=== PATIENT | male | born 1995 | race Caucasian/White ===

== ENCOUNTER 2019-10-15 17:35 | Emergency (ER) | payer OTHER ==
[~2019-10-15] VITALS: Ht 180.3 cm; Wt 105.0 kg
--- NOTE | 2019-10-15 17:46 | PHYS DOC ---
Past History Past Medical History: Diabetes General Adult EDM: Chief Complaint: ANKLE PROBLEM HPI: HPI: " ,,, I was playing foot ball.. and stepped into a hole and twisted the Lt. ankle..." Patient is 23 year old male who presents with above hx and complaints of twis nilda ankle Lt. ankle. Patient distal neurovascular is equal to his right foot. Patient does have obvious edema of left malleolus particularly lateral. No upper leg tenderness. Foot squeeze is negative. Patient denies other injury in the fall. Patient has been ambulatory with a limp. Patient does have a history of diabetes but is well controlled. Patient denies any recent travel or specific ill contacts. Patient normally healthy with exception of his chronic diabetes. Review of Systems: Review of Systems: Constitutional: Denies fever or chills Eyes: Denies change in visual acuity HENT: Denies nasal congestion or sore throat Respiratory: Denies cough or shortness of breath Cardiovascular: Denies chest pain or edema GI: Denies abdominal pain, nausea, vomiting, bloody stools or diarrhea : Denies dysuria Musculoskeletal: Denies back pain or joint pain Except Lt ankle as per HPI Integument: Denies rash Neurologic: Denies headache, focal weakness or sensory changes Endocrine: Denies polyuria or polydipsia Lymphatic: Denies swollen glands Psychiatric: Denies depression or anxiety Heart Score: Risk Factors: Risk Factors: DM, Current or recent (<one month) smoker, HTN, HLP, family history of CAD, obesity. Risk Scores: Score 0 - 3: 2.5% MACE over next 6 weeks - Discharge Home Score 4 - 6: 20.3% MACE over next 6 weeks - Admit for Clinical Observation Score 7 - 10: 72.7% MACE over next 6 weeks - Early Invasive Strategies Family History: Family History: Noncontributory to presentation Current Medications: Current Meds: See nursing for home meds Allergies: Allergies: No known drug allergies Physical Exam: PE: Constitutional: Well developed, well nourished, mild distress, non-toxic appearance. [] HENT: Normocephalic, atraumatic, bilateral external ears normal, oropharynx moist, no oral exudates, nose normal. [] Eyes: PERRLA, EOMI, conjunctiva normal, no discharge. [] Neck: Normal range of motion, no tenderness, supple, no stridor. [] Cardiovascular:Heart rate regular rhythm, no murmur [] Lungs & Thorax: Bilateral breath sounds clear to auscultation [] Abdomen: Bowel sounds normal, soft, no tenderness, no masses, no pulsatile masses. [] Skin: Warm, dry, no erythema, no rash. [] Back: No tenderness, no CVA tenderness. [] Extremities: No tenderness, no cyanosis, no clubbing, ROM intact, no edema. [Except findings and left ankle as per HPI Neurologic: Alert and oriented X 3, normal motor function, normal sensory function, no focal deficits noted. [] Psychologic: Affect anxious l, judgement normal, mood normal. [] EKG: EKG: [] Radiology/Procedures: Radiology/Procedures: [][address] [address] IMAGING REPORT Signed PATIENT: MARY BARKER ACCOUNT: [id number] : 1995 LOCATION: ER AGE: 23 SEX: M EXAM STATUS: REG ER ORD. PHYSICIAN: VILMA BLACK MD REASON: INJURY, TWISTED-FELL IN A HOLE, LATERAL PAIN, X A FEW HOURS PROCEDURE: ANKLE LEFT 3V ANKLE LEFT 3V History: Injury. Pain. Technique: 3 views left ankle. Comparison: None. Findings: Normal alignment. Symmetric ankle mortise. Soft tissues unremarkable. Impression: 1. No acute osseous abnormality. Electronically signed by: Alexander Barnett DO (10/15/2019 6:40 PM) [facility] DICTATED AND SIGNED BY: ALEXANDER BARNETT DO DATE: 10/15/191839 CC: VILMA BLACK MD; MANOLO HEIN MD ~ Course & Med Decision Making: Course & Med Decision Making Pertinent Labs and Imaging studies reviewed. (See chart for details). Patient wear splint or Kyaw wrap as directed. Ice as needed. Elevation. Take Tylenol ibuprofen for pain. Follow-up primary care return if any concerns. Impression- 1. Left ankle sprain 2. History of diabetes [] Dragon Disclaimer: Dragon Disclaimer: This electronic medical record was generated, in whole or in part, using a voice recognition dictation system. Departure Departure: Disposition: /RESIDENCE PRIOR TO ADM Condition: STABLE Referrals: MANOLO HEIN MD (PCP) [facility] Disclaimer This chart was dictated in whole or in part using Voice Recognition software in a busy, high-work load, and often noisy Emergency Department environment. It may contain unintended and wholly unrecognized errors or omissions. VILMA BLACK MD October 15, 2019 17:46
[2019-10-15 17:50] VITALS: BP 161/97
--- NOTE | 2019-10-15 18:43 | RAD ---
ANKLE LEFT 3V History: Injury. Pain. Technique: 3 views left ankle. Comparison: None. Findings: Normal alignment. Symmetric ankle mortise. Soft tissues unremarkable. Impression: 1. No acute osseous abnormality. Electronically signed by: Alexander Barnett DO (10/15/2019 6:40 PM) [place]
[2019-10-15] MEDS ORDERED: IBUPROFEN 600 MG TABLET. PO ONE (19:00)
== END 2019-10-15 19:18 | disposition home or self-care (01) ==
LOC: ER 17:35
DX: S93.402A Sprain of unspecified ligament of left ankle, initial encounter (principal); E11.9 Type 2 diabetes mellitus without complications; X50.9XXA Other and unspecified overexertion or strenuous movements or postures, initial encounter; Y93.89 Activity, other specified; Y92.89 Other specified places as the place of occurrence of the external cause; Y99.8 Other external cause status
CPT/HCPCS: 73610; 99283